=== PATIENT | female | born 1990 | race Caucasian/White ===

== ENCOUNTER 2016-08-04 00:29 | Emergency (ER) | payer OTHER, MEDICAID ==
[2016-08-04] MEDS ORDERED: IBUPROFEN 400 MG TAB PO ONE (01:01)
[2016-08-04] MEDS ORDERED: IBUPROFEN 400 MG TAB ONE (01:03)
[2016-08-04 01:21] VITALS: BP 114/61; PULSE 90; RESP 16; O2SAT 97
[2016-08-04 01:22] LABS: BASOPHILS % (AUTO) 0 % (0-3); EOSINOPHILS % (AUTO) 0 % (0-9); HEMATOCRIT 35 % (35-47); MEAN CORPUSCULAR HGB CONC 34.2 gm/dl (32.0-36.0); MEAN CORPUSCULAR VOLUME 84 fL (81-99); MONOCYTES % (AUTO) 6.5 % (0-12); NEUTROPHILS % (AUTO) 89.9 % (37-80)
[2016-08-04] MEDS ORDERED: AMOXICILLIN 125/5 ML BOTTLE ONE (01:30)
[2016-08-04] MEDS ORDERED: AMOXICILLIN 125/5 ML BOTTLE PO ONE (01:36)
[2016-08-04 01:39] VITALS: TEMP 100.7
== END 2016-08-04 01:45 | disposition home or self-care (01) | DRG 153 ==
LOC: ED 00:29
DX: J02.0 Streptococcal pharyngitis (principal)
CPT/HCPCS: 36415; 85025; 87430; 87804; 99282